=== PATIENT | male | born 1965 | race Caucasian/White ===

== ENCOUNTER 2022-07-22 13:56 | Emergency (ER) | payer OTHER ==
[~2022-07-22] VITALS: Ht 172.7 cm; Wt 77.1 kg
[2022-07-22 14:02] VITALS: BP 154/88
[2022-07-22] MEDS ORDERED: KETOROLAC 60 MG/2 ML VIAL IM ONE (14:15)
--- NOTE | 2022-07-22 14:15 | NUR ---
56 y/o male bib self from home, pt states 5 days ago he fell on chest, denies loc or syncope. pt c/o right sided chest pain pain, increases with forward motions and inspirations. a&ox4, ambulates with steady gait, skin intact/warm/dry/pink. denies fever, chills, n/v/d. pmh: htn nka
[2022-07-22] MEDS ORDERED: ACET-8386 PO (14:31)
[2022-07-22] MEDS ORDERED: IBUP-2213 PO (14:31)
[2022-07-22 14:40] VITALS: BP 154/88
--- NOTE | 2022-07-22 14:40 | NUR ---
Patient discharged with v/s stable. Written and verbal after care instructions given and explained. Patient alert, oriented and verbalized understanding of instructions. Ambulatory with steady gait. All questions addressed prior to discharge. ID band removed. Patient advised to follow up with PMD. Rx of hydrocodone, ibuprofen (sent) given. Patient educated on indication of medication including possible reaction and side effects. Opportunity to ask questions provided and answered.
== END 2022-07-22 14:40 | disposition home or self-care (01) ==
LOC: MED 13:56
DX: S20.211A Contusion of right front wall of thorax, initial encounter (principal); I10 Essential (primary) hypertension; Z79.899 Other long term (current) drug therapy; W18.30XA Fall on same level, unspecified, initial encounter; Y93.89 Activity, other specified; Y92.89 Other specified places as the place of occurrence of the external cause; Y99.8 Other external cause status
CPT/HCPCS: 96372; 99283; J1885